=== PATIENT | female | born 2000 | race Caucasian/White ===

== ENCOUNTER 2022-02-07 09:53 | Emergency (ER) | payer MEDICAID ==
[~2022-02-07] VITALS: Ht 162.5 cm; Wt 47.6 kg
--- NOTE | 2022-02-07 10:51 | ED General ---
General Chief Complaint: COVID19 Suspect/Confirmed Stated Complaint: HEADACHE- SORE THROAT - BILAT EAR PAIN - BODY ACHE Nursing Triage Note: PT TO RM 9 WITH CC OF CALDWELL, BODYACHES, SORE THROAT, NAUSEA AND HOT/COLD FLASHES FOR 3 DAYS. UNKNOWN IF HAS HAD A FEVER. Source of Information: Patient Exam Limitations: No Limitations (LIANA GARNETT MED STUDENT) History of Present Illness Date Seen by Provider: Feb 07, 2022 Time Seen by Provider: 10:43 Initial Comments Radha Torres is a 21 yo female with flu like symptoms. Pt reports chills, subjective fever, CALDWELL, sore throat, nausea congestion, body aches, productive cough and congestion for the last three days. Pt denies sick contacts or travel. She denies COVID vaccination. Of note, she has had a toothache for the last two weeks, but can't get into her dentist until Mar 08. 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 Pt denies CP, SOA, weakness, numbness, vomiting, diarrhea, constipation, rashes or lesions. No tobacco, ETOH or drug abuse. No major medical conditions or surgeries. Timing/Duration: 2-3 Days Associated Systoms: Cough, Fever/Chills, Headaches, Malaise, Nausea/Vomiting (LIANA GARNETT MED STUDENT) Allergies and Home Medications Patient Home Medication List Home Medication List Reviewed: Yes (NORA GALICIA MD) Penicillin V Potassium (Penicillin V Potassium) 500 Mg Tablet, 500 MG PO QID Prescribed by: NORA GALICIA on 02/07/22 1117 Review of Systems Review of Systems Constitutional: chills, fever (subjective) EENTM: mouth pain (right upper molar pain), throat pain; No blurred vision, No vision loss Respiratory: cough, phlegm; No short of breath Cardiovascular: No chest pain, No palpitations Gastrointestinal: No abdominal pain, No constipation, No diarrhea; nausea; No vomiting Genitourinary: No dysuria, No frequency Musculoskeletal: muscle pain, muscle weakness Skin: No lesions, No lumps, No rash Psychiatric/Neurological: Headache; Denies Numbness, Denies Paresthesia Hematologic/Lymphatic: No Symptoms Reported Immunological/Allergic: no symptoms reported (LIANA GARNETT MED STUDENT) Past Nlpvulk-Exwyrl-Ieaast Hx Patient Social History Tobacco Use?: No Substance use?: No Alcohol Use?: No Pt feels they are or have been: No (LIANA GARNETT MED STUDENT) Past Medical History Surgery/Hospitalization HX: D&C (LIANA GARNETT MED STUDENT) Physical Exam Vital Signs Vital Signs - First Documented 02/07/22 10:00 Temp 37.0 Pulse 98 Resp 18 B/P (MAP) 105/75 (85) Pulse Ox 98 O2 Delivery Room Air (NORA GALICIA MD) Vital Signs Capillary Refill : Less Than 3 Seconds (LIANA GARNETT MED STUDENT) Height, Weight, BMI Height: '" Weight: lbs. oz. kg; 18.00 BMI Method: General Appearance: No Apparent Distress, WD/WN HEENT: PERRL/EOMI, Pharynx Normal Neck: Full Range of Motion, Lymphadenopathy (L) (submandibular), Lymp hadenopathy (R) (submandibular) Respiratory: Chest Non Tender, Lungs Clear, No Accessory Muscle Use, No Re spiratory Distress Cardiovascular: Regular Rate, Rhythm, No Murmur Gastrointestinal: Normal Bowel Sounds, Non Tender, Soft Extremity: Normal Inspection, Non Tender, No Pedal Edema Neurologic/Psychiatric: Alert, Oriented x3, Normal Mood/Affect, package delivery driver II-XII Norm as Tested Skin: Normal Color, Warm/Dry Lymphatic: No Adenopathy (LIANA GARNETT MED STUDENT) Progress/Results/Core Measures Suspected Sepsis SIRS Temperature: Pulse: 98 Respiratory Rate: 18 Blood Pressure 105 /75 Mean: 85 (LIANA GARNETT MED STUDENT) Results/Orders Lab Results Laboratory Tests Test 02/07/22 10:08 Range/Units SARS-CoV-2 RNA (RT-PCR) Not Detected Not Detecte (NORA GALICIA MD) My Orders Orders - NORA GALICIA MD Covid 19 Inhouse Test (02/07/22 10:14) Isolation Central Supply Req (02/07/22 10:14) (NORA GALICAI MD) Vital Signs/I&O 02/07/22 02/07/22 10:00 11:20 Temp 37.0 Pulse 98 77 Resp 18 18 B/P (MAP) 105/75 (85) 109/68 Pulse Ox 98 99 O2 Delivery Room Air Room Air (NORA GALICIA MD) Vital Signs/I&O Capillary Refill : Less Than 3 Seconds (LIANA GARNETT MED STUDENT) Blood Pressure Mean: 85 Progress Note : Time: 11:13 Progress Note Patient seen and examined by me 21-year-old with 3 days of congestion, cough, green sputum, chills. No nausea vomiting or diarrhea. No urinary complaints. Just had her menstrual cycle on January 29. Is not on control but is sexually active. No facial pain or green nasal discharge. Mild sore throat/discomfort. Vital signs are stable. Clinically nontoxic in appearance. No significant physical exam findings. COVID test is negative. She is not COVID vaccinated. She is also complaining of some right upper premolar dental pain. Taking ibuprofen and Tylenol without relief. Has a dental appointment scheduled for March. Discussed with the patient that we will place her on some antibiotics for her dental issues which may or may not help with the other above-stated symptoms. Recommended vgjl-jug-xoiedcf Aleve at 2 tablets twice daily with food, Flonase if she develops nasal congestion, switching her Zyrtec to Debbie or Claritin and increase fluids. She is comfortable with this plan of care. All questions are sought and answered. (NORA GALICIA MD) Departure Impression Primary Impression: URI (upper respiratory infection) Qualified Codes: J06.9 - Acute upper respiratory infection, unspecified Additional Impression: Pain, dental Disposition: HOME, SELF-CARE Condition: Stable Departure-Patient Inst. Decision time for Depature: 11:15 (NORA GALICIA MD) Referrals: RANULFO KEITH MD (PCP/Family) Primary Care Physician Patient Instructions: Dental Pain ED, Upper Respiratory Infection ED Add. Discharge Instructions: Drink plenty of fluids to stay well-hydrated. Switch from Zyrtec to either Debbie or Claritin. You can also use Flonase for nasal congestion. Cypp-iaw-zgyaqiu Aleve, 2 tablets twice daily with food as needed for dental pain. Use a good oral rinse for your dental issues as well. Be sure and brush twice daily. Keep your follow-up appointment with your dentist. Return to the emergency department for any new, concerning or emergent complaints. Pen-Vee K 500 mg 4 times a day for the next 10 days. Scripts Penicillin V Potassium (Penicillin V Potassium) 500 Mg Tablet 500 MG PO QID for 10 Days, #40 TAB Prov: NORA GALICIA MD 02/07/22 Verification and Attestation of Medical Student E/M Service A medical student performed and documented this service in my presence. I reviewed and verified all information documented by the medical student and made modifications to such information, when appropriate. I personally performed the physical exam and medical decision making. Nora Galicia, Feb 07, 2022,11:15 (NORA GALICIA MD) LIANA GARNETT MED STUDENT Feb 07, 2022 10:51 NORA GALICIA MD Feb 07, 2022 11:17
[2022-02-07] MEDS ORDERED: PENI500T PO (11:17)
[2022-02-07 11:20] VITALS: BP 109/68
== END 2022-02-07 11:20 | disposition home or self-care (01) ==
LOC: ER 09:57
DX: J06.9 Acute upper respiratory infection, unspecified (principal); K08.89 Other specified disorders of teeth and supporting structures; Z20.822 Contact with and (suspected) exposure to COVID-19; Z28.310 Unvaccinated for COVID-19
CPT/HCPCS: 87636; 99283

== ENCOUNTER 2022-04-20 00:47 | Emergency (ER) | payer MEDICAID ==
[~2022-04-20] VITALS: Ht 162.6 cm; Wt 47.6 kg
[~2022-04-20 00:47] MED LIST: PENI500T PO
[2022-04-20 01:15] LABS: BILIRUBIN,URINE NEGATIVE (NEGATIVE); CLARITY,URINE CLEAR; GLUCOSE, URINE (UA) NEGATIVE (NEGATIVE); KETONES,URINE NEGATIVE (NEGATIVE); LEUKOCYTE ESTERASE ,URINE 1+ (NEGATIVE); NITRITE,URINE NEGATIVE (NEGATIVE); PH,URINE 5.5 (5-9); PROTEIN,URINE NEGATIVE (NEGATIVE)
[2022-04-20 01:26] LABS: COLOR,URINE GREEN; WBC,URINE >100 /HPF
[2022-04-20 01:27] LABS: BACTERIA,URINE TRACE /HPF
[2022-04-20] MEDS ORDERED: RX-NITROFURANTOIN 100 MG (MACROBID) CAP PPK#2 PO STA (01:37)
[2022-04-20] MEDS ORDERED: NITR-65 PO (01:41)
[2022-04-20] MEDS ORDERED: PHEN-640 PO (01:41)
--- NOTE | 2022-04-20 01:41 | ED GU-Female ---
General Chief Complaint: - Reproductive Stated Complaint: SEVERE UTI Nursing Triage Note: PT AMB TO FT 2 W C/O "SEVERE UTI" X3 DAYS. PT BELIEVES UTI IS SEVERE D/T SUPRAPUBIC PAIN AND BURNING W URINATION. HAS BEEN TAKING AZO OTC W/O RELIEF, A&OX4. Source: patient History of Present Illness Date Seen by Provider: Apr 20, 2022 Time Seen by Provider: 01:10 Initial Comments PT ARRIVES VIA POV FROM HOME, WITH HER BOYFRIEND'S MOTHER--PT LIVES WITH HER BOYFRIEND AND HIS MOTHER IN [place], [place] C/O UTI SYMPTOMS FOR 3 DAYS C/O URGENCY, FREQUENCY, PAIN WITH URINATION, AND MILD LOWER ABDOMINAL PAIN WITH URINATION. NO FEVER NO NAUSEA/VOMITING NO BACK PAIN NO VAGINAL BLEEDING OR DISCHARGE LMP 04/02/22. NO CONTROL. PT HAS HISTORY OF INTERSTITIAL CYSTITIS. DOES NOT TAKE ANY MEDICATIONS FOR THIS HAS HAD UTI'S --GETS ABOUT 1 OR MAYBE 2 A YEAR. LAST ONE HAS BEEN > 1 YEAR AGO[address] HAS [address] RAY IN [place], FOR UROLOGY. HAS NOT SEEN HIM ANY TIME RECENTLY HAS NOT SOUGHT CARE UNTIL [facility] FOR THIS PROBLEM REPORTED TO RN THAT SHE HAD TAKEN OTC AZO SHE STATES TO ME THAT SHE HAS NOT TAKEN ANYTHING FOR HER SYMPTOMS DENIES ANY OTHER MEDICAL PROBLEMS. PCP: DR. CARTER IN [place] UROLOGIST: DR. RAY IN [place]. Allergies and Home Medications Allergies Coded Allergies: No Known Drug Allergies (Unverified , 04/20/22) Patient Home Medication List Home Medication List Reviewed: Yes Nitrofurantoin Monohyd/M-Cryst (Macrobid 100 mg Capsule) 100 Mg Capsule, 1 TAB PO BID Prescribed by: SAYRA MOJICA on 04/20/22 0141 Penicillin V Potassium (Penicillin V Potassium) 500 Mg Tablet, 500 MG PO QID Prescribed by: NORA GALICIA on 02/07/22 1117 Phenazopyridine HCl (Pyridium) 200 Mg Tablet, 1 TAB PO TID Prescribed by: SAYRA MOJICA on 04/20/22 0141 Review of Systems Review of Systems Constitutional: no symptoms reported; No fever EENTM: no symptoms reported Respiratory: no symptoms reported Cardiovascular: no symptoms reported Gastrointestinal: see HPI, abdominal pain; No diarrhea, No vomiting Genitourinary: see HPI, burning, dysuria, frequency; denies flank pain; pain, urgency : No LMP: Apr 02, 2022 Musculoskeletal: no symptoms reported; No back pain Skin: no symptoms reported Psychiatric/Neurological: No Symptoms Reported Endocrine: No Symptoms Reported Hematologic/Lymphatic: No Symptoms Reported Past Javksoj-Ehieha-Zrswlj Hx Patient Social History Tobacco Use?: No Use of E-Cig and/or Vaping dev: Yes E-Cig or Vaping type used: Nicotine Use of E-Cig and/or Vaping Michael: Current Everyday User Substance use?: No Alcohol Use?: No Immunizations Up To Date Influenza Vaccine Up-to-Date: No; Not Current First/Initial COVID19 Vaccinat: NONE Second COVID19 Vaccination Jurgen: NONE Third COVID19 Vaccination Date: NONE COVID19 Vaccine Enrollment Management Manager: NONE Past Medical History Surgery/Hospitalization HX: D&C Surgeries: Yes (WISDOM TEETH; CYSTOSCOPY) Respiratory: No Cardiac: No Neurological: No : No Reproductive Disorders: No Genitourinary: Yes (INTERSTITIAL CYSTITIS;) UTI-Chronic Gastrointestinal: No Musculoskeletal: No Endocrine: No HEENT: No Cancer: No Psychosocial: No Integumentary: No Blood Disorders: No Physical Exam Vital Signs Vital Signs - First Documented 04/20/22 00:58 Temp 36.6 Pulse 70 Resp 20 B/P (MAP) 99/70 (80) Pulse Ox 100 O2 Delivery Room Air Capillary Refill : Less Than 3 Seconds Height, Weight, BMI Height: '" Weight: lbs. oz. kg; 18.00 BMI Method: General Appearance: WD/WN, no apparent distress, thin, other (DOES NOT APPEAR ILL OR TO BE IN ANY DISCOMFORT OR DISTRESS) Cardiovascular: regular rate, rhythm, no murmur Respiratory: normal breath sounds Gastrointestinal: soft, no organomegaly, tenderness (MILD SUPRAPUBIC TENDERNESS. ) Back: no CVA tenderness Extremities: normal inspection Neurologic/Psychiatric: no motor/sensory deficits, alert, normal mood/affect, oriented x 3 Skin: normal color, warm/dry; No rash Progress/Results/Core Measures Suspected Sepsis SIRS Temperature: Pulse: 70 Respiratory Rate: 20 Blood Pressure 99 /70 Mean: 80 Results/Orders Lab Results Laboratory Tests Test 04/20/22 01:06 Range/Units Urine Color GREEN H Urine Clarity CLEAR Urine pH 5.5 5-9 Urine Specific Hobbs >=1.030 1.016-1.022 Urine Protein NEGATIVE NEGATIVE Urine Glucose (UA) NEGATIVE NEGATIVE Urine Ketones NEGATIVE NEGATIVE Urine Nitrite NEGATIVE NEGATIVE Urine Bilirubin NEGATIVE NEGATIVE Urine Urobilinogen 0.2 < = 1.0 MG/DL Urine Leukocyte Esterase 1+ H NEGATIVE Urine RBC (Auto) TRACE-I H NEGATIVE Urine RBC NONE /HPF Urine WBC >100 H /HPF Urine Squamous Epithelial Cells 2-5 /HPF Urine Crystals NONE /LPF Urine Bacteria TRACE /HPF Urine Casts NONE /LPF Urine Mucus NEGATIVE /LPF Urine Culture Indicated YES My Orders Orders - SAYRA MOJICA DO Urine Bedside (04/20/22 01:10) Ua Culture If Indicated (04/20/22 01:10) Urine Culture (04/20/22 01:06) Rx-Nitrofurantoin [place] (Rx-Macrobid) (04/20/22 01:37) Phenazopyridine Tablet (Pyridium Tablet) (04/20/22 01:45) Medications Given in ED Current Medications Medications Dose Ordered Sig/Allen Route Start Time Stop Time Status Last Admin Dose Admin Phenazopyridine HCl 200 mg ONCE ONCE PO 04/20/22 01:45 04/20/22 01:46 DC 04/20/22 02:17 200 MG Vital Signs/I&O 04/20/22 04/20/22 00:58 02:21 Temp 36.6 Pulse 70 72 Resp 20 18 B/P (MAP) 99/70 (80) 95/67 Pulse Ox 100 100 O2 Delivery Room Air Capillary Refill : Less Than 3 Seconds 2 Blood Pressure Mean: 80 Progress Note : Progress Note ANTICIPATED COURSE, NEED FOR FOLLOW UP, SYMPTOMATIC TREATMENT AND RETURN PRECAUTIONS DISCUSSED WITH PT AND HER BOYFRIEND'S MOTHER. Departure Impression Primary Impression: Urinary tract infection Disposition: HOME, SELF-CARE Condition: Stable Departure-Patient Inst. Decision time for Depature: 01:39 Referrals: GLENIS CARTER DO (PCP) Primary Care Physician Patient Instructions: Urinary Tract Infection, Adult (DC) Add. Discharge Instructions: LOTS OF CLEAR LIQUIDS NO COFFEE, POP OR TEA TYLENOL AND MOTRIN NEEDED FOR PAIN FOLLOW UP WITH DR. RAY IN A FEW DAYS FOR FURTHER CARE. CALL IN THE MORNING TO SCHEDULE APPOINTMENT RETURN TO ER IF WORSE All discharge instructions reviewed with patient and/or family. Voiced understanding. Scripts Nitrofurantoin Monohyd/M-Cryst (Macrobid 100 mg Capsule) 100 Mg Capsule 1 TAB PO BID, #20 CAP Prov: SAYRA MOJICA DO 04/20/22 Phenazopyridine HCl (Pyridium) 200 Mg Tablet 1 TAB PO TID, #15 TAB Prov: SAYRA MOJICA DO 04/20/22 SAYRA MOJICA DO Apr 20, 2022 01:41
[2022-04-20] MEDS ORDERED: PHENAZOPYRIDINE 100 MG (PYRIDIUM) TABLET PO ONE (01:45)
[2022-04-20 02:21] VITALS: BP 95/67
== END 2022-04-20 02:21 | disposition home or self-care (01) ==
LOC: EDUNIT# 00:47 → ER 00:51
DX: N39.0 Urinary tract infection, site not specified (principal); F17.290 Nicotine dependence, other tobacco product, uncomplicated; Z28.310 Unvaccinated for COVID-19; Z87.440 Personal history of urinary (tract) infections
CPT/HCPCS: 81000; 84703; 87077; 87088; 87186; 99283

== ENCOUNTER 2022-10-20 20:57 | Emergency (ER) | payer MEDICAID ==
[~2022-10-20] VITALS: Ht 162.5 cm; Wt 44.4 kg
[~2022-10-20 20:57] MED LIST changes: +NITR-65 PO; +PHEN-640 PO
--- NOTE | 2022-10-20 21:17 | ED Abdominal Pain ---
General Chief Complaint: Abdominal/GI Problems Stated Complaint: ABD PAIN - BACK PAIN Nursing Triage Note: PT AMB TO RM7 WITH C/O ABD PAIN THAT RADIATES TO THE BACK. PT STATES THAT IT STARTED YESTERDAY AND WAS SEEN AT A CLINIC FOR POSSIBLE UTI. HX OF ULCERS. Source of Information: Patient Exam Limitations: No Limitations History of Present Illness Date Seen by Provider: October 20, 2022 Time Seen by Provider: 21:15 Initial Comments Patient is a 22-year-old female who presents ED with abdominal pain and back pain. Symptoms started yesterday. Described as a pressure. Radiates from her mid upper abdomen right lower quadrant to her back. Patient states pain has increased. Pain was worse with movement. She did attempt to take Gas-X extra strength without much improvement. Denies of any urinary symptoms or vaginal b leeding. Scheduled for her menstrual cycle in 2 days. Not concern for . No history of kidney stones but history of urinary tract infections. She denies vomiting or diarrhea. Last bowel movement 2 days ago. Denies cough, chest pain, shortness of breath, visual changes fever, chills, sore throat, headache, dizziness. No history of previous abdominal surgery. She did take some Tylenol and ibuprofen without much improvement. Allergies and Home Medications Allergies Coded Allergies: No Known Drug Allergies (Unverified , 04/20/22) Patient Home Medication List Home Medication List Reviewed: Yes Dicyclomine HCl (Dicyclomine HCl) 20 Mg Tablet, 20 MG PO TIDAC PRN for ABDOMINAL PAIN Prescribed by: ALBERTO SAHNI on 10/20/222235 Famotidine (Pepcid) 40 Mg Tablet, 40 MG PO DAILY Prescribed by: ALBERTO SAHNI on 10/20/222222 Nitrofurantoin Monohyd/M-Cryst (Macrobid 100 mg Capsule) 100 Mg Capsule, 1 TAB PO BID Prescribed by: SAYRA MOJICA on 04/20/22 0141 Penicillin V Potassium (Penicillin V Potassium) 500 Mg Tablet, 500 MG PO QID Prescribed by: NORA GALICIA on 02/07/22 1117 Phenazopyridine HCl (Pyridium) 200 Mg Tablet, 1 TAB PO TID Prescribed by: SAYRA MOJICA on 04/20/22 0141 Review of Systems Review of Systems Constitutional: No chills, No diaphoresis, No fever, No malaise, No weakness EENTM: No Eye Pain Respiratory: Denies Cough Gastrointestinal: Abdominal Pain; Denies Diarrhea, Denies Nausea, Denies Vomiting Musculoskeletal: back pain; No joint pain, No joint swelling, No muscle pain, No muscle stiffness All Other Systems Reviewed Negative Unless Noted: Yes Past Sifdpjj-Rqskzd-Vyquco Hx Patient Social History Tobacco Use?: Yes Use of E-Cig and/or Vaping dev: Yes E-Cig or Vaping type used: Nicotine Substance use?: No Alcohol Use?: No Immunizations Up To Date First/Initial COVID19 Vaccinat: NONE Second COVID19 Vaccination Jurgen: NONE Third COVID19 Vaccination Date: NONE Past Medical History Surgery/Hospitalization HX: D&C Surgeries: Yes (WISDOM TEETH; CYSTOSCOPY) Respiratory: No Cardiac: No Neurological: No Reproductive Disorders: No Genitourinary: Yes (INTERSTITIAL CYSTITIS;) UTI-Chronic Gastrointestinal: No Musculoskeletal: No Endocrine: No HEENT: No Cancer: No Psychosocial: No Integumentary: No Blood Disorders: No Physical Exam Vital Signs Vital Signs - First Documented 10/20/22 20:59 Temp 36.7 Pulse 86 Resp 14 B/P (MAP) 119/78 (92) Pulse Ox 99 O2 Delivery Room Air Capillary Refill : Height/Weight/BMI Height: '" Weight: lbs. oz. kg; 16.00 BMI Method: General Appearance: WD/WN, no apparent distress HEENT: PERRL/EOMI, normal ENT inspection, TMs normal, pharynx normal Neck: non-tender, full range of motion, supple Respiratory: chest non-tender, lungs clear, normal breath sounds, no respiratory distress, no accessory muscle use Cardiovascular: regular rate, rhythm, no edema, no gallop, no JVD Gastrointestinal: normal bowel sounds, soft, no organomegaly, no pulsatile mass, tenderness (Right lower quadrant tenderness, epigastric tenderness, umbilicus tenderness, right upper quadrant tenderness) Extremities: normal range of motion, non-tender, normal inspection, no pedal edema, no calf tenderness Back: normal inspection, no CVA tenderness, no vertebral tenderness Neurologic/Psychiatric: supplemental manager II-XII nml as tested, no motor/sensory deficits, alert, normal mood/affect, oriented x 3 Skin: normal color, warm/dry Progress/Results/Core Measures Results/Orders Lab Results Laboratory Tests Test 10/20/22 21:05 10/20/22 21:53 Range/Units White Blood Count 10.9 4.3-11.0 10^3/uL Red Blood Count 4.22 3.80-5.11 10^6/uL Hemoglobin 13.5 11.5-16.0 g/dL Hematocrit 39 35-52 % Mean Corpuscular Volume 91 80-99 fL Mean Corpuscular Hemoglobin 32 25-34 pg Mean Corpuscular Hemoglobin Concent 35 32-36 g/dL Red Cell Distribution Width 11.9 10.0-14.5 % Platelet Count 227 130-400 10^3/uL Mean Platelet Volume 10.1 9.0-12.2 fL Immature Granulocyte % (Auto) 0 % Neutrophils (%) (Auto) 65 42-75 % Lymphocytes (%) (Auto) 27 12-44 % Monocytes (%) (Auto) 8 0-12 % Eosinophils (%) (Auto) 0 0-10 % Basophils (%) (Auto) 1 0-10 % Neutrophils # (Auto) 7.0 1.8-7.8 10^3/uL Lymphocytes # (Auto) 2.9 1.0-4.0 10^3/uL Monocytes # (Auto) 0.9 0.0-1.0 10^3/uL Eosinophils # (Auto) 0.0 0.0-0.3 10^3/uL Basophils # (Auto) 0.1 0.0-0.1 10^3/uL Immature Granulocyte # (Auto) 0.0 0.0-0.1 10^3/uL Sodium Level 141 135-145 MMOL/L Potassium Level 3.7 3.6-5.0 MMOL/L Chloride Level 107 98-107 MMOL/L Carbon Dioxide Level 25 21-32 MMOL/L Anion Gap 9 5-14 MMOL/L Blood Urea Nitrogen 10 7-18 MG/DL Creatinine 0.75 0.60-1.30 MG/DL Estimat Glomerular Filtration Rate 117 BUN/Creatinine Ratio 13 Glucose Level 82 70-105 MG/DL Calcium Level 9.3 8.5-10.1 MG/DL Corrected Calcium 8.9 8.5-10.1 MG/DL Total Bilirubin 0.6 0.1-1.0 MG/DL Aspartate Amino Transf (AST/SGOT) 15 5-34 U/L Alanine Aminotransferase (ALT/SGPT) 12 0-55 U/L Alkaline Phosphatase 69 40-136 U/L Total Protein 7.1 6.4-8.2 GM/DL Albumin 4.5 3.2-4.5 GM/DL Lipase 30 8-78 U/L Serum Test, Qualitative NEGATIVE NEGATIVE Urine Color YELLOW Urine Clarity CLEAR Urine pH 6.0 5-9 Urine Specific [place] <=1.005 1.016-1.022 Urine Protein NEGATIVE NEGATIVE Urine Glucose (UA) NEGATIVE NEGATIVE Urine Ketones NEGATIVE NEGATIVE Urine Nitrite NEGATIVE NEGATIVE Urine Bilirubin NEGATIVE NEGATIVE Urine Urobilinogen 0.2 < = 1.0 MG/DL Urine Leukocyte Esterase NEGATIVE NEGATIVE Urine RBC (Auto) TRACE-I H NEGATIVE Urine RBC 5-10 H /HPF Urine WBC NONE /HPF Urine Squamous Epithelial Cells 5-10 /HPF Urine Crystals NONE /LPF Urine Bacteria TRACE /HPF Urine Casts NONE /LPF Urine Mucus NEGATIVE /LPF Urine Culture Indicated NO Urine Test NEGATIVE NEGATIVE My Orders Orders - AUDREY ALVAREZ Ua Culture If Indicated (10/20/22 21:08) Hcg,Qualitative Urine (10/20/22 21:08) Cbc With Automated Diff (10/20/22 21:14) Comprehensive Metabolic Panel (10/20/22 21:14) Lipase (10/20/22 21:14) Hcg,Qualitative Serum (10/20/22 21:14) Ct Abd/Pelv W (Appendicitis) (10/20/22 21:14) Iohexol Injection (Omnipaque 300 Mg/Ml 5 (10/20/22 21:30) Ns (Ivpb) (Sodium Chloride 0.9% Ivpb Bag (10/20/22 21:30) Received Contrast (Hold Metformin- Contr (10/20/22 21:30) Ketorolac Injection (Toradol Injection) (10/20/22 22:00) Famotidine Injection (Pepcid Injection) (10/20/22 22:00) Medications Given in ED Vital Signs/I&O 10/20/22 10/20/22 20:59 22:35 Temp 36.7 Pulse 86 Resp 14 B/P (MAP) 119/78 (92) 102/71 Pulse Ox 99 O2 Delivery Room Air Blood Pressure Mean: 92 Departure Communication (PCP) Reviewed previous ER visits, H&P, lab testing. Differential diagnosis of gastritis, peptic ulcer disease, pancreatitis, appendicitis, acute cholecystitis. Patient presents to ED with mid upper abdominal pain. Symptoms started yesterday. She denies vomiting or diarrhea. She states pain feels more like pressure. She states she has been diagnosed with gastritis in the past with potential ulcer. She is unsure what she was treated with. She does not necessarily have much risk factors for ulcer such as heavy alcohol consumption, excessive NSAID use. No history of previous abdominal surgery. No current urinary symptoms. CBC, CMP, lipase, urinalysis and was ordered. Urinalysis did show trace hematuria. She is scheduled start her menstrual cycle in 2 days. No evidence of infection. Currently on antibiotic for urinary tract infection according to patient. Recently seen at a clinic a few days ago. CBC, CMP, lipase grossly unremarkable. Due to location of pain CT abdomen pelvis was ordered. CT abdomen and pelvis Moderately distended stomach with ingested contents. Findings can be seen with gastritis. She did eat a few slices of pizza right before arrival. Other potential causes would be gastritis versus S MA syndrome. Patient was given Toradol 30 mg and Pepcid 20 mg. No vomiting or diarrhea. No evidence of surgical abdomen. Patient pain started to improve here. Due to the gastritis recommend outpatient follow-up with GI general surgery. May need upper EGD. Denies history of H. pylori which would be of differential. Will discharge with Pepcid. Discuss PPI options to take. D iscussed diet changes. Avoid eating late at night. May consider Prevacid, omeprazole or Protonix if pain progress or worsen. Tylenol for pain. Follow-up with your PCP in 2 to 3 days for reevaluation. further evaluation is needed. Discussed small feedings when eating. Impression Primary Impression: Gastritis Disposition: 01 HOME, SELF-CARE Condition: Stable Departure-Patient Inst. Decision time for Depature: 22:23 Referrals: MANDI DOMINGUEZ MD,GLENIS Cameron DO (PCP) Primary Care Physician Patient Instructions: Gastritis Add. Discharge Instructions: Recommend avoid eating late at night. Elevate head at night. If pain is not improved with Pepcid may consider taking Mylanta or Tums. Recommend following up with GI surgery for further evaluation of this gastritis. Avoid any spicy foods, salty foods, carbonated beverages, chocolate. Return back to ED if symptoms worsen All discharge instructions reviewed with patient and/or family. Voiced und erstanding. Scripts Dicyclomine HCl (Dicyclomine HCl) 20 Mg Tablet 20 MG PO TIDAC PRN for ABDOMINAL PAIN, #16 TAB Prov: AUDREY ALVAREZ 10/20/22 Famotidine (Pepcid) 40 Mg Tablet 40 MG PO DAILY, #30 TAB Prov: AUDREY ALVAREZ 10/20/22 Work/School Note: Work Release Form Date Seen in the Emergency Department: October 20, 2022 Return to Work: October 22, 2022 AUDREY ALVAREZ October 20, 2022 21:17
[2022-10-20 21:21] LABS: BASOPHILS # (AUTO) 0.1 10^3/uL (0.0-0.1); BASOPHILS % (AUTO) 1 % (0-10); EOSINOPHILS % (AUTO) 0 % (0-10); HEMATOCRIT 39 % (35-52); HEMOGLOBIN 13.5 g/dL (11.5-16.0); LYMPHOCYTES # (AUTO) 2.9 10^3/uL (1.0-4.0); LYMPHOCYTES % (AUTO) 27 % (12-44); MEAN CORPUSCULAR HEMOGLOBIN 32 pg (25-34); MEAN CORPUSCULAR HGB CONC 35 g/dL (32-36); MEAN CORPUSCULAR VOLUME 91 fL (80-99); MEAN PLATELET VOLUME 10.1 fL (9.0-12.2); MONOCYTES # (AUTO) 0.9 10^3/uL (0.0-1.0); MONOCYTES % (AUTO) 8 % (0-12); NEUTROPHILS % (AUTO) 65 % (42-75); PLATELET COUNT 227 10^3/uL (130-400); WHITE BLOOD COUNT 10.9 10^3/uL (4.3-11.0)
[2022-10-20 21:24] LABS: ALBUMIN 4.5 GM/DL (3.2-4.5); POTASSIUM 3.7 MMOL/L (3.6-5.0)
[2022-10-20 21:26] LABS: CALCIUM 9.3 MG/DL (8.5-10.1)
[2022-10-20 21:27] LABS: TOTAL PROTEIN 7.1 GM/DL (6.4-8.2)
[2022-10-20 21:29] LABS: BILIRUBIN,TOTAL 0.6 MG/DL (0.1-1.0)
[2022-10-20 21:30] LABS: CREATININE SERUM 0.75 MG/DL (0.60-1.30)
[2022-10-20] MEDS ORDERED: NS 100 ML (IVPB) BAG IV ONE (21:30)
[2022-10-20] MEDS ORDERED: HOLD METFORMIN - RECEIVED CONTRAST 20 ML VIAL IV SCH (21:30)
[2022-10-20] MEDS ORDERED: IOHEXOL 300 MG/ML 50 ML (OMNIPAQUE 300) VIAL IV ONE (21:30)
--- NOTE | 2022-10-20 21:44 | Diagnostic Imaging Report ---
EXAMINATION: CT abdomen and pelvis with intravenous contrast. TECHNIQUE: Multiple contiguous axial images were obtained through the abdomen and pelvis after the uneventful administration of intravenous contrast. All CT scans use one or more of the following dose optimizing techniques: automated exposure control, MA and/or KvP adjustment based on patient size and exam type or iterative reconstruction. HISTORY: Abdominal pain. COMPARISON: None available. FINDINGS: The heart is unremarkable. The included lung bases are clear. The liver, spleen, pancreas, adrenal glands and kidneys have a normal appearance. The gallbladder is mildly prominent. There is no pathologically enlarged mesenteric or retroperitoneal adenopathy. The stomach is moderately distended with ingested contents. The bowel loops are nondilated. The appendix is visualized in the right lower quadrant and has a normal appearance. There is no free fluid or free air. No acute osseous abnormality. Ureters and bladder are grossly normal. There is no free air, loculated collection or adenopathy in the pelvis. IMPRESSION: 1. Moderately distended stomach with ingested contents. Findings can be seen with gastritis. SMA syndrome could also have this appearance in the appropriate clinical scenario. Recommend correlation with patient history and symptoms and follow-up, as indicated. 2. No bowel obstruction. No free fluid or free air. 3. Mildly distended gallbladder. No gallstone is identified. Dictated by: Dictated on workstation # [id number]
[2022-10-20] MEDS ORDERED: KETOROLAC 30 MG/ML VIAL IVP ONE (22:00)
[2022-10-20] MEDS ORDERED: FAMOTIDINE 20MG/2ML IV (PEPCID) IVP ONE (22:00)
[2022-10-20 22:03] LABS: BILIRUBIN,URINE NEGATIVE (NEGATIVE); CLARITY,URINE CLEAR; COLOR,URINE YELLOW; GLUCOSE, URINE (UA) NEGATIVE (NEGATIVE); KETONES,URINE NEGATIVE (NEGATIVE); LEUKOCYTE ESTERASE ,URINE NEGATIVE (NEGATIVE); NITRITE,URINE NEGATIVE (NEGATIVE); PROTEIN,URINE NEGATIVE (NEGATIVE)
[2022-10-20 22:12] LABS: BACTERIA,URINE TRACE /HPF
[2022-10-20] MEDS ORDERED: FAMO40TA72 PO (22:23)
[2022-10-20 22:35] VITALS: BP 102/71
[2022-10-20] MEDS ORDERED: DICY20TA PO (22:36)
== END 2022-10-20 22:35 | disposition home or self-care (01) ==
LOC: EDUNIT# 20:57 → ER 20:58
DX: K29.70 Gastritis, unspecified, without bleeding (principal); N39.0 Urinary tract infection, site not specified; F17.290 Nicotine dependence, other tobacco product, uncomplicated; Z98.890 Other specified postprocedural states; Z28.310 Unvaccinated for COVID-19
CPT/HCPCS: 36415; 74177; 80053; 81000; 83690; 84703; 85025

== ENCOUNTER 2023-01-26 10:47 | Emergency (ER) | payer MEDICAID ==
[~2023-01-26] VITALS: Ht 163 cm; Wt 44.4 kg
[~2023-01-26 10:47] MED LIST changes: +DICY20TA PO; +FAMO40TA72 PO
--- NOTE | 2023-01-26 11:05 | ED Cough/URI ---
General Chief Complaint: Cough/Cold/Flu Symptoms Stated Complaint: 16 WEEKS | FLU-LIKE SYMPTOMS Source: patient Exam Limitations: no limitations History of Present Illness Date Seen by Provider: Jan 26, 2023 Time Seen by Provider: 10:52 Initial Comments 22-year-old female at 16 WGA by first trimester ultrasound coming in due to cough and fever. Started feeling sick on Tuesday. Has had a fever fairly consistently. Last had 1 this morning and she took Tylenol around 7:30 AM which did help. Denies any vomiting, abdominal cramping or pain, vaginal bleeding, or any other concerns. She is drinking fluids without difficulty. Her family member is also sick Allergies and Home Medications Allergies Coded Allergies: No Known Drug Allergies (Unverified , 04/20/22) Patient Home Medication List Home Medication List Reviewed: Yes Dicyclomine HCl (Dicyclomine HCl) 20 Mg Tablet, 20 MG PO TIDAC PRN for ABDOMINAL PAIN Prescribed by: ALBERTO SAHNI on 10/20/222235 Famotidine (Pepcid) 40 Mg Tablet, 40 MG PO DAILY Prescribed by: ALBERTO SAHNI on 10/20/22 222 Nitrofurantoin Monohyd/M-Cryst (Macrobid 100 mg Capsule) 100 Mg Capsule, 1 TAB PO BID Prescribed by: SAYRA MOJICA on 04/20/22 0141 Nitrofurantoin Monohyd/M-Cryst (Macrobid 100 mg Capsule) 100 Mg Capsule, 1 TAB PO BID Prescribed by: AUDREY MAYER on 01/26/23 1141 Penicillin V Potassium (Penicillin V Potassium) 500 Mg Tablet, 500 MG PO QID Prescribed by: NORA GALICIA on 02/07/22 1117 Phenazopyridine HCl (Pyridium) 200 Mg Tablet, 1 TAB PO TID Prescribed by: SAYRA MOJICA on 04/20/22 0141 Review of Systems Review of Systems Constitutional: fever EENTM: nose congestion Respiratory: cough Cardiovascular: no symptoms reported Gastrointestinal: no symptoms reported Genitourinary: no symptoms reported Musculoskeletal: no symptoms reported Skin: no symptoms reported Psychiatric/Neurological: No Symptoms Reported Hematologic/Lymphatic: No Symptoms Reported Past Spurynj-Dbgolg-Mczkmp Hx Patient Social History Tobacco Use?: No Use of E-Cig and/or Vaping dev: No Substance use?: No Alcohol Use?: No Immunizations Up To Date Influenza Vaccine Up-to-Date: No; Not Current First/Initial COVID19 Vaccinat: not vacc Second COVID19 Vaccination Jurgen: NONE Third COVID19 Vaccination Date: NONE Past Medical History Surgery/Hospitalization HX: denies dental, d&c Surgeries: Yes (WISDOM TEETH; CYSTOSCOPY) Respiratory: No Cardiac: No Neurological: No Reproductive Disorders: No Genitourinary: Yes (INTERSTITIAL CYSTITIS;) UTI-Chronic Gastrointestinal: No Musculoskeletal: No Endocrine: No HEENT: No Cancer: No Psychosocial: No Integumentary: No Blood Disorders: No Physical Exam Vital Signs - First Documented Capillary Refill : Height: '" Weight: lbs. oz. kg; 16.00 BMI Method: General Appearance: WD/WN, no apparent distress Eyes: Bilateral Eye Normal Inspection HEENT: PERRL/EOMI, normal ENT inspection, pharynx normal Neck: non-tender, full range of motion, supple, normal inspection Respiratory: chest non-tender, lungs clear, normal breath sounds, no respiratory distress, no accessory muscle use Cardiovascular: no edema, no murmur, tachycardia Gastrointestinal: normal bowel sounds, non tender, soft, other (gravid) Extremities: normal range of motion, non-tender, normal inspection, no pedal edema, no calf tenderness, normal capillary refill Neurologic/Psychiatric: no motor/sensory deficits, alert, normal mood/affect Skin: normal color, warm/dry Progress/Results/Core Measures Suspected Sepsis SIRS Temperature: Pulse: Respiratory Rate: Blood Pressure / Mean: Results/Orders Lab Results Laboratory Tests Test 01/26/23 10:52 01/26/23 10:53 Range/Units Influenza Type A (RT-PCR) Not Detected Not Detecte Influenza Type B (RT-PCR) Not Detected Not Detecte SARS-CoV-2 RNA (RT-PCR) Detected H Not Detecte Urine Color YELLOW Urine Clarity CLEAR Urine pH 6.0 5-9 Urine Specific [place] 1.020 1.016-1.022 Urine Protein 1+ H NEGATIVE Urine Glucose (UA) NEGATIVE NEGATIVE Urine Ketones TRACE H NEGATIVE Urine Nitrite NEGATIVE NEGATIVE Urine Bilirubin 1+ H NEGATIVE Urine Urobilinogen 0.2 < = 1.0 MG/DL Urine Leukocyte Esterase NEGATIVE NEGATIVE Urine RBC (Auto) NEGATIVE NEGATIVE Urine RBC NONE /HPF Urine WBC NONE /HPF Urine Squamous Epithelial Cells 5-10 /HPF Urine Crystals NONE /LPF Urine Bacteria FEW H /HPF Urine Casts NONE /LPF Urine Mucus SMALL H /LPF Urine Culture Indicated NO My Orders Orders - AUDREY MAYER MD Ua Culture If Indicated (01/26/23 10:51) Influenza A And B By Pcr (01/26/23 10:51) Covid 19 Inhouse Test (01/26/23 10:51) Vital Signs/I&O 01/26/23 01/26/23 10:54 10:54 Temp 36.5 Pulse 107 Resp 18 B/P (MAP) 121/85 (97) Pulse Ox 98 O2 Delivery Room Air Room Air Capillary Refill : Progress Note : Progress Note 22-year-old female presenting for fever and cough. Patient was mildly tachycardic on presentation, did come down with rest. She is tolerating p.o. we will give her oral fluids here. She recently received Tylenol, currently afebrile. Urinalysis with small amount of bacteria, we will treat this during even though she is asymptomatic. COVID and flu test were sent and the COVID test is positive which is consistent with her symptoms. Her lungs sound clear, she is breathing comfortably with no accessory muscle use, oxygen saturation normal, and overall I believe stable for outpatient follow-up. She was sent home with strict return precautions. Departure Impression Primary Impression: COVID-19 Additional Impression: Asymptomatic bacteriuria during Disposition: 01 HOME, SELF-CARE Condition: Stable Departure-Patient Inst. Decision time for Depature: 11:45 Referrals: GLENIS CARTER DO (PCP/Family) Primary Care Physician Patient Instructions: COVID-19 and Add. Discharge Instructions: You do unfortunately have COVID. Symptoms will be similar to a flu. Continue to take Tylenol as you are doing for fever or body aches. Be sure to be drinking plenty of fluids. Please call your OB today and let them know you have COVID and were seen in the ER. Please see if they have any recommendations or medication changes. You did have some bacteria in your urine as well, an antibiotic will be sent to your pharmacy to help with this which is safe during Scripts Acetaminophen (Tylenol Extra Strength) 500 Mg Tablet 1000 MG PO Q8H PRN for FEVER for 14 Days, #84 TAB Prov: AUDREY MAYER MD 01/26/23 Nitrofurantoin Monohyd/M-Cryst (Macrobid 100 mg Capsule) 100 Mg Capsule 1 TAB PO BID for 5 Days, #10 CAP Prov: AUDREY MAYER MD 01/26/23 Work/School Note: Work Release Form Date Seen in the Emergency Department: Jan 26, 2023 Return to Work: Jan 29, 2023 Restrictions: Return-No Fever (24hrs) AUDREY MAYER MD Jan 26, 2023 11:05
[2023-01-26 11:27] LABS: CLARITY,URINE CLEAR; COLOR,URINE YELLOW; GLUCOSE, URINE (UA) NEGATIVE (NEGATIVE); KETONES,URINE TRACE (NEGATIVE); NITRITE,URINE NEGATIVE (NEGATIVE); PROTEIN,URINE 1+ (NEGATIVE)
[2023-01-26 11:28] LABS: BACTERIA,URINE FEW /HPF; BILIRUBIN,URINE 1+ (NEGATIVE); LEUKOCYTE ESTERASE ,URINE NEGATIVE (NEGATIVE)
[2023-01-26] MEDS ORDERED: NITR-65 PO (11:41)
[2023-01-26 11:45] VITALS: BP 102/70
[2023-01-26] MEDS ORDERED: ACET-2267 PO (11:45)
== END 2023-01-26 11:45 | disposition home or self-care (01) ==
LOC: EDUNIT# 10:47 → ER 10:50
DX: O98.512 Other viral diseases complicating pregnancy, second trimester (principal); U07.1 COVID-19; R82.71 Bacteriuria; R05.9 Cough, unspecified; R50.9 Fever, unspecified; R00.0 Tachycardia, unspecified; Z28.310 Unvaccinated for COVID-19; Z3A.16 16 weeks gestation of pregnancy
CPT/HCPCS: 81000; 87636; 99283

== ENCOUNTER 2023-03-11 14:24 | Outpatient (CLI) | payer MEDICAID ==
[~2023-03-11] VITALS: Ht 162.6 cm; Wt 48.6 kg
[~2023-03-11 14:24] MED LIST changes: +ACET-2267 PO
[2023-03-11 14:47] VITALS: BP 110/71
[2023-03-11] MEDS ORDERED: PREN1TAB19 PO (15:18)
--- NOTE | 2023-03-12 04:56 | OB Triage Report ---
Standard Progress Note Progress Notes/Assess & Plan Date Seen by a Provider: Mar 11, 2023 Time Seen by a Provider: 15:30 Expected Date of Delivery: Jul 13, 2023 Gestational Age in Weeks: 22 Gestational Age in Days: 0 LMP/NAHUN Comment: As above Progress/Assessment & Plan Chief Complaint: Possible Leakage of Fluid HPI: Patient is receiving OB care elsewhere presents to L&D for possible leakage of amniotic fluid vs. vaginal discharge, noticed night before, had to change underclothing twice, no big gush, no bleeding, denies abdominal pain or contractions. S: As above O: VSS/AF, urine dip negative per RN, ROM test negative. Perineum moist, but no evidence of gross rupture per RN. Normal range FHR, active fetus noted. Cervical exam not indicated and not performed. A/P: # Second Trimester , no evidence of SROM # Not in labor # Released to home with routine OB precautions # Follow up with OB provider as scheduled, sooner prn. Final Diagnosis Second Trimester , 22 Weeks Not in Labor CAROL PRIEST DO Mar 12, 2023 04:56
== END 2023-03-11 15:25 | disposition home or self-care (01) ==
LOC: WSo 14:24 → LDRP 14:24 → WSo 15:25
PROVIDERS: ATTEND Obstetrics & Gynecology
DX: O42.90 Premature rupture of membranes, unspecified as to length of time between rupture and onset of labor, unspecified weeks of gestation (principal); Z3A.00 Weeks of gestation of pregnancy not specified
CPT/HCPCS: 99213